=== PATIENT | female | born 2005 ===

== ENCOUNTER 2025-04-24 10:38 | Outpatient (CLI) | payer BC, SELFPAY ==
--- NOTE | ~2025-04-24 | US_ITS ---
ULTRASOUND ABDOMEN LIMITED (RIGHT UPPER QUADRANT) Clinical History: elevation of levels of liver transaminase levels Comparison: None Technique: Right upper quadrant sonography Findings: Liver: Subtle micronodular contour. Normal size. Normal echotexture. Mild intrahepatic biliary ductal dilatation. Normal hepatopedal flow main portal vein. Common Duct: Normal caliber. 3 mm. Gallbladder: No stones. No wall thickening. No pericholecystic fluid. Pancreas: Mostly obscured by bowel gas. IMPRESSION: 1. Mild intrahepatic biliary ductal dilatation. Recommend MRCP. Reviewed, dictated and finalized at location [facility]
== END 2025-04-24 10:39 | disposition home or self-care (01) ==
PROVIDERS: PCP Nurse Practitioner; Visit Provider Nurse Practitioner
DX: K83.8 Other specified diseases of biliary tract (principal)
CPT/HCPCS: 76705

== ENCOUNTER 2025-04-24 10:51 | Emergency (ER) | payer BC, SELFPAY ==
[2025-04-24 11:03] VITALS: BP 125/83; PULSE 87; RESP 18; TEMP 37.5; O2SAT 100
--- NOTE | 2025-04-24 11:38 | ED.URI ---
HPI - URI/Sore Throat General Chief Complaint: Upper Respiratory Infection Stated Complaint: Sore Throat Time Seen by Provider: 04/24/25 11:28 Source: patient, family, RN notes reviewed and old records reviewed Mode of arrival: ambulatory Limitations: no limitations History of Present Illness HPI Narrative: 19 year old female who presents to [facility] care accompanied by mother with complaints of sore throat, fevers and swollen glands for the past 2 days. Patient reports that she went to [employer] [employer] at [facility] last week for her eyes being swollen and they did labs for liver studies and thyroid with elevated liver enzymes found. Patient reports that she went back to [facility] on Thursday and had more labs done but does not have results yet, states that they sent blood for Lupus, hepatitis and also mono. Patient reports some sinus congestion and drainage, denies any acute cough or any ear pain, reports that she continues to have fatigue and that swelling of eyes has resolved.Offered POC Caroline test and wanted to wait for lab test to come back. patient reports that she has taken some Tylenol for her symptoms, MD elicited complaint: fever, sore throat and other (swollen glands) Onset (ago): day(s) (2 days or sore throat with fevers and swollen glands.) Consistency: constant Pain scale (0-10): 8 Able to tolerate fluids by mouth: Yes Exacerbating factors: swallowing Treatments prior to arrival: acetaminophen Related Data Home Medications ?Medication ?Instructions ?Recorded ?Confirmed ?Last Taken ?Type escitalopram oxalate 20 mg tablet 20 mg PO DAILY 04/24/25 04/24/25 Unknown History (Lexapro) Allergies Allergy/AdvReac Type Severity Reaction Status Date / Time No Known Allergies Allergy Verified 04/24/25 11:01 Review of Systems Review of Systems: CONSTITUTIONAL:Reports malaise, chills, sweats, or fever, fatigue EYES: Denies visual changes, redness, or discharge. ENT: Reports rhinorrhea, congestion, sinus pain, no otalgia and positive for sore throat. CARDIOVASCULAR: Denies chest pain, palpitations, or edema. RESPIRATORY: Reports no acute cough.? Denies dyspnea. GASTROINTESTINAL: Denies abdominal pain, nausea, vomiting, diarrhea SKIN: Denies rash or itching. MUSCULOSKELETAL: Denies myalgia. NEUROLOGIC: Denies headache. All systems reviewed & are unremarkable except as noted in HPI and below PMFSH Social History Social History (Updated 04/25/25 @ 15:39 by Carleen Barger APRN) Alcohol intake: never Substance use type: does not use Occupation/Education: student Gender identity (if verbalized by the patient): Female Comments At time of signature, agree with nursing past medical, surgical, social and family history. There is no relevant family history pertinent to the presenting complaint Exam Narrative: GENERAL: ill-appearing, well-nourished, and in no acute distress. HEAD: Normocephalic EYES: PERRLA, conjunctivae clear ENT: Nares clear, turbinates edematous and erythematous, clear discharge. Mucous membranes moist. TM pearly soto with dull light reflex bilaterally; no tragal tenderness. Oropharynx erythematous without lesions.Tonsils red enlarged and with exudates, no drooling, no hoarseness, no trismus, uvula midline.post nasal drainage, reports fatigue NECK: Supple.positive lymphadenopathy CHEST: Clear to auscultation, breath sounds equal. No wheezing, rhonchi, rales, or stridor. No respiratory distress, speaks in full sentences.no cough noted, SAO2 100% on room air HEART: Regular rate and rhythm. No murmur heard. SKIN: Warm, dry, no rash. NEURO: Alert and oriented x3. PSYCH: Normal mood and affect Course Course Emergency Course: Patient is aware of diagnosis, understands and agrees to treatment plan.? Anticipatory guidance given.? Patient agrees to follow-up as directed and is aware of reasons to seek care at the emergency department. Portions of this record may have been created with voice recognition software Level of Care: Express Care Visit Vital Signs Vital signs: Vital Signs Temperature 37.5 C 04/24/25 11:03 Pulse Rate 87 04/24/25 11:03 Respiratory Rate 18 04/24/25 11:03 Blood Pressure 125/83 04/24/25 11:03 Pulse Oximetry 100 04/24/25 11:03 Temperature 37.5 C 04/24/25 11:03 Pulse Rate 87 04/24/25 11:03 Respiratory Rate 18 04/24/25 11:03 Blood Pressure 125/83 04/24/25 11:03 Pulse Oximetry 100 04/24/25 11:03 Reviewed MDM - URI/Sore Throat MDM Narrative Medical decision making narrative: Differential diagnosis considered: Maradiaga virus, strep pharyngitis, allergic rhinitis, upper respiratory tract infection, sinusitis, rhinosinusitis, nasopharyngitis. viral pharyngitis, otitis media, otitis externa, pneumonia, bronchitis, viral cough syndrome, viral syndrome, and influenza.? Exam findings show no acute concerns or changes; patient is non-toxic appearing and is in no distress.? Patient is appropriate for outpatient treatment and follow-up.Suspect mono family wishes to wait for lab test results tonsils have exudates and are red will treat at this time with Doxycycline since Azithromycin has possible interactions with Lexapro. Differential Diagnosis Differential diagnosis: Likely upper respiratory infection, viral infection, pharyngitis and other (strep pharyngitis, mono) Medical Records Attestation: I reviewed the patient's medical records. Lab Data Attestation: I reviewed the patient's lab results. Lab results narrative: strep screen negative, culture sent Labs: Lab Results 04/24/25 Range/Units 11:40 POC Grp A Strep Screen Negative (Negative) reviewed Critical Care Time Critical Care Time Critical Care Time: No Discharge Plan Discharge Clinical Impression: Exudative tonsillitis Patient Disposition: Home Condition: Stable Instructions: Antibiotic Form, Tonsillitis (ED) Additional Instructions: . Take the entire course of antibiotics. Throw away your current toothbrush and begin using a new toothbrush in 48 hours in order to prevent re-infection. Sanitize all reusable water bottles . Do not share items with others. Salt water gargles may alleviate some of the throat discomfort. You can take Tylenol or ibuprofen per the package instructions for pain/fever. If your symptoms persist, change or worsen significantly before you can contact your personal physician then please, without delay, go to the emergency department for further evaluation. Follow-up with PCP in 7-10 days or sooner if needed Follow up with PCP soon in regards to your blood pressure which is elevated above threshold for referral. Blood pressure above 120/80 may indicate pre-hypertension. minimal elevation 125/83 Zyrtec Claritin or Lulu daily for package instruction Tylenol or ibuprofen for pain or fevers per package instructions Patient Language: Unknown Prescriptions: New doxycycline hyclate 100 mg tablet 100 mg PO BID Qty: 14 0RF No Action escitalopram oxalate [Lexapro] 20 mg tablet 20 mg PO DAILY Follow-up/Referrals: PHYSICIAN,CONTINUOUS [employer]ESS [employer]ER [Primary Care Provider, Internal Medicine] Stand Alone Forms: Work/School Release IP Time of Disposition: 11:49 Quality Antoinette Coma Scale Eyes: Open Verbal: Oriented and Alert Motor: Follows Commands [place] Coma Total Score: 15
[2025-04-24 11:45] LABS: EDSTREPNEGPOS1 Negative (Negative)
== END 2025-04-24 12:05 | disposition home or self-care (01) ==
PROVIDERS: Emergency Provider Registered Nurse
DX: J03.90 Acute tonsillitis, unspecified (principal)
CPT/HCPCS: 87081; 87880; 99203; G0463